=== PATIENT | female | born 2000 | race African-American/Black ===

== ENCOUNTER 2025-05-22 14:06 | Emergency (ER) | payer OTHER, SELFPAY ==
[2025-05-22 14:17] VITALS: BP 152/88; PULSE 85; RESP 20; TEMP 36.2; O2SAT 100
[2025-05-22] MEDS: IPRATROPIUM BR 0.02% INH SOLN 0.5 MG/2.5 ML VIAL INHALATION (14:33)
[2025-05-22] MEDS: ALBUTEROL SULFATE NEB 2.5 MG/3 ML INH INHALATION (14:33)
--- NOTE | 2025-05-22 14:59 | ED.ASTHMA ---
HPI - Asthma General Chief Complaint: Upper Respiratory Infection Stated Complaint: Cough/Shortness of Breath Time Seen by Provider: 05/22/25 14:25 Source: patient Mode of arrival: ambulatory Limitations: no limitations History of Present Illness HPI Narrative: Dre is a 25-year-old female patient presenting to the clinic today with complaints of cough and shortness of breath for the past 6 days. She does have a history of asthma. She is a nonsmoker. She has tried her albuterol nebulizer treatments without much relief. Denies any chest pain. Related Data Home Medications ?Medication ?Instructions ?Recorded ?Confirmed ?Last Taken ?Type albuterol sulfate .ROUTE 05/22/25 Unknown History Allergies Allergy/AdvReac Type Severity Reaction Status Date / Time No Known Allergies Allergy Verified 05/22/25 14:20 Review of Systems Review of Systems: Pertinent positives per HPI. Patient denies any fever, chills, rash, headache, visual changes, dizziness, chest pain, palpitations, nausea, vomiting, diarrhea, constipation, abdominal pain, or any urinary issues. PMFSH Comments At the time of my signature, I reviewed and agree with the nursing past medical, surgical, social, and family history. There is no relevant family history pertinent to the patient complaint. Exam Narrative: General: Well-developed, well nourished, in no apparent distress Head: Normocephalic, atraumatic Eyes: Pupils equally round and reactive to light bilaterally, EOM intact, sclera and conjunctive clear, no discharge, lids normal Ears: TMs intact and clear, ear canals clear, no drainage, grossly hearing normal. Nose: Nares patent, no discharge, no inflammation, no sinus tenderness. Mouth: Oral pharynx without lesions or masses, good dentition, MMM. Neck: Supple, trachea midline, no enlargement of anterior or posterior cervical nodes, no thyroid masses or goiter palpable. Cardio: Regular rate and rhythm, s1 and s2 normal, no murmur appreciated. Resp: Clear to auscultation bilaterally, no rhonchi, rales, wheezing or rubs Course Course Level of Care: Express Care Visit Vital Signs Vital signs: Vital Signs Temperature 36.2 C L 05/22/25 14:17 Pulse Rate 85 05/22/25 14:17 Respiratory Rate 20 05/22/25 14:17 Blood Pressure 152/88 H 05/22/25 14:17 Pulse Oximetry 100 05/22/25 14:17 Oxygen Delivery Room Air 05/22/25 14:17 Temperature 36.2 C L 05/22/25 14:17 Pulse Rate 85 05/22/25 14:17 Respiratory Rate 20 05/22/25 14:17 Blood Pressure 152/88 H 05/22/25 14:17 Pulse Oximetry 100 05/22/25 14:17 Oxygen Delivery Room Air 05/22/25 14:17 MDM MDM Narrative Medical decision making narrative: At the time of visit patient is resting comfortably on the exam table. Patient appears to be nontoxic. Complaints of cough and shortness of breath for the past 6 days. She does have a history of asthma. She is a nonsmoker. She has tried her albuterol nebulizer treatments without much relief. Denies any chest pain. On exam patient's lung sounds are tight no audible wheezing or rhonchi. Oxygen saturations 100% on room air. She denies any URI symptoms, fevers, chills, or body aches Medications: DuoNeb treatment was given in the clinic today. This improved patient's aeration and sure reports that she feels as though she is having ease with breathing. Plan: I suspect patient likely has an asthma exacerbation. Prescription for prednisone and albuterol inhaler was sent to the pharmacy. Patient may continue use of her albuterol nebulizer as prescribed. Supportive measures were discussed with the patient and they voiced understanding discharge instructions and agrees to treatment plan. Return precautions reviewed Differential Diagnosis Differential Diagnosis: Differential diagnostic considerations for upper respiratory infection include upper respiratory infection, croup, otitis media, sinusitis, viral infection, bronchitis, influenza, pharyngitis, strep, uvulitis, asthma, pneumonia Discharge Plan Discharge Clinical Impression: Asthma with exacerbation Qualifiers: Asthma severity: unspecified severity Asthma persistence: unspecified Qualified Code(s): J45.901 - Unspecified asthma with (acute) exacerbation Patient Disposition: Home Condition: Stable Instructions: Antibiotic Form, Asthma (ED) Additional Instructions: Take prescription medications only as prescribed-albuterol inhaler and prednisone Increase fluids and stay well hydrated May take Tylenol or motrin as directed on bottle for pain/fever May use Flonase 1 spray in each nare daily May take OTC antihistamines such as Zyrtec or Claritin daily as directed on bottle Go to the ED if you develop a worsening in your condition- high fever not controlled by Tylenol or Motrin, dehydration, weakness, lethargy, shortness of breath, or chest pain. Follow up with your PCP in 3-5 days if symptoms persist. Patient Language: Grenadian Prescriptions: New prednisone 20 mg tablet 40 mg PO DAILY 5 Days Qty: 10 0RF albuterol sulfate 90 mcg/actuation HFA aerosol inhaler 2 puff inhalation Q4-6H PRN (Reason: shortness of breath or wheezing) 30 Days Qty: 8.5 0RF No Action albuterol sulfate .ROUTE Follow-up/Referrals: PHYSICIAN NOT ON STAFF,NONSTAFF [Primary Care Provider] Time of Disposition: 14:59 Quality NIHSS Nursing Documentation ED NIHSS nursing documentation: reviewed/agree
== END 2025-05-22 15:09 | disposition home or self-care (01) ==
PROVIDERS: Emergency Provider Nurse Practitioner Family
DX: J45.901 Unspecified asthma with (acute) exacerbation (principal)
CPT/HCPCS: 94640; 99213; G0463